=== PATIENT | female | born 1980 | race African-American/Black ===

== ENCOUNTER 2020-08-17 12:38 | Outpatient (CLI) | payer MEDICAID ==
[~2020-08-17] VITALS: Ht 170.2 cm; Wt 117.5 kg
[2020-08-17 12:57] VITALS: BP 109/78
--- NOTE | 2020-08-17 15:44 | Consultation ---
DATE OF CONSULTATION: 08/17/2020 REASON FOR CONSULTATION: Referral for abdominal pain, GERD, constipation. PAST MEDICAL HISTORY: Hypertension, sleep apnea, depression, diabetes, carpal tunnel. PAST SURGICAL HISTORY: None. MEDICATIONS: Please see medication reconciliation list. FAMILY HISTORY: Noncontributory. SOCIAL HISTORY: The patient occasionally drinks alcohol. Smokes 3 cigarettes per day. She uses marijuana almost on a daily basis. ALLERGIES: No known drug allergies. REVIEW OF SYSTEMS: Positive for abdominal pain, GERD, constipation, on and off rectal bleeding. PHYSICAL EXAMINATION: VITAL SIGNS: Temperature 96.6, blood pressure 107/78, pulse is 80, respirations 20. Height is 5 feet 7 inches. Weight is 259. HEENT: Normocephalic, atraumatic. Sclerae anicteric. NECK: Supple. No evidence of obvious lymphadenopathy. CARDIOVASCULAR: Regular rate and rhythm. Plus S1-S2. LUNGS: Decreased breath sounds bilaterally based on the supine exam. ABDOMEN: Soft, nontender. No rebound. No peritoneal sign. EXTREMITIES: No cyanosis, no clubbing, no edema. ASSESSMENT: This is a 40-year-old female with the above complaints. PLAN: Increase omeprazole to 40 mg p.o. daily for better control of her symptoms. The patient would need an endoscopy given her age of 40 and persistent abdominal pain, epigastric pain despite of omeprazole. The patient was also given MiraLAX 17 g p.o. at bedtime at bedtime for constipation. Amaury Hernández M.D. DR: CESAR JOB#: [id number] CC:
== END 2020-08-17 15:31 | disposition home or self-care (01) ==
LOC: PAN 12:38
DX: R10.9 Unspecified abdominal pain (principal); K21.9 Gastro-esophageal reflux disease without esophagitis; K59.00 Constipation, unspecified; F32.9 Major depressive disorder, single episode, unspecified; I10 Essential (primary) hypertension; G47.30 Sleep apnea, unspecified; E11.9 Type 2 diabetes mellitus without complications; F17.210 Nicotine dependence, cigarettes, uncomplicated; K62.5 Hemorrhage of anus and rectum
CPT/HCPCS: 99203